=== PATIENT | female | born 1960 | race Caucasian/White ===

== ENCOUNTER → 2017-08-19 | Outpatient (CLI) | payer BC ==
--- NOTE | 2017-08-20 13:25 | MM ---
Reason for exam: screening (asymptomatic). Last mammogram was performed 11 years and 6 months ago. History: Patient is postmenopausal. Physical Findings: A clinical breast exam by your physician is recommended on an annual basis and results should be correlated with mammographic findings. MG Screening Mammo w CAD Bilateral CC and MLO view(s) were taken. Prior study comparison: March 17, 2014, mammogram, performed at [facility]. There are scattered fibroglandular densities. 6mm circumscribed isodense nodule 10 o'clock posterior right breast is now better seen. A benign entity such as a cyst is suspected. A 6 month follow up is recommended. These results were verbally communicated with the patient and result sheet given to the patient on 08/19/17. ASSESSMENT: Probably benign, BI-RAD 3 RECOMMENDATION: Follow-up diagnostic mammogram of the right breast in 6 months.
== END | disposition home or self-care (01) ==
LOC: RADMAMWWP 16:50
PROVIDERS: ATTEND Family Medicine
DX: Z12.31 Encounter for screening mammogram for malignant neoplasm of breast (principal)
CPT/HCPCS: 77067

== ENCOUNTER → 2018-03-05 | Outpatient (CLI) | payer BC ==
[2018-03-05 14:07] VITALS: BP 130/58; PULSE 77; RESP 16; TEMP 97.4; BMI 26.6
--- NOTE | 2018-03-05 14:09 | P.GSHP ---
History of Present Illness H&P Date: 03/05/18 Chief Complaint: abnormal mammogram right breast 08/19/17 The patient is a 57-year-old white female who was seen in the spring and recommended to undergo a repeat right breast mammogram secondary to a mammographic abnormality noted in August 2017. On that film there was a 6 mm circumscribed isodense nodule at the 10:00 posterior right breast. Six-month follow-up was recommended. The patient has not noted any changes in her breasts. She has no nipple discharge or changes. No history of trauma or infection of the breast. Family History: mother: HTN father: esophageal cancer maternal grandmother: breast in hre 80's Hormanal History: menarche: 15 :3, 3 children first at 22 did not breast feed menopause: 54 BCP: 4 years hormones: none Past Surgical History: 1. conization 2. tubaligation 3. hernia as a baby 4. right knee arthroplasty 5. varicose veins 6. tonsils Past Medical History: none Social History: smoke: 1-2/PPD stopped at 41 smoked for 20 years alcohol: occasional drugs: none - Review of Systems Comment: BMI: 26.6 - Constitutional Constitutional: Denies chills, Denies fever - EENT Eyes: denies blurred vision, denies pain Ears: right: decreased hearing Ears, nose, mouth and throat: Denies headache, Denies sore throat - Breasts Breasts: bilateral: as per HPI - Cardiovascular Cardiovascular: Denies chest pain, Denies shortness of breath - Respiratory Respiratory: Denies cough, Denies 7 - Gastrointestinal Gastrointestinal: Denies abdominal pain, Denies diarrhea, Denies nausea, Denies vomiting - Genitourinary (Female) Genitourinary: Denies dysuria, Denies hematuria - Menstruation Menstruation: Reports postmenopausal - Musculoskeletal Comment: right knee arthritis - Integumentary Integumentary: Denies pruritus, Denies rash - Neurological Neurological: Denies numbness, Denies weakness - Psychiatric Psychiatric: Denies anxiety, Denies depression - Endocrine Endocrine: Denies fatigue, Denies weight change - Hematologic/Lymphatic Comment: none - Allergic/Immunologic Allergic/Immunologic: Reports seasonal allergies Surgical - Exam - General well developed, well nourished, no distress - Eyes normal ocular movement, no icteric - ENT no hearing loss, no congestion - Neck no masses, trachea midline - Respiratory normal respiratory effort, clear to auscultation - Cardiovascular Rhythm: regular Heart Sounds: normal: S1, S2 - Abdomen Abdomen: soft, non tender, no guarding, no rigid, no rebound - Integumentary no rash, no abnormal pigmentation - Neurologic no disoriented, no combative - Musculoskeletal normal gait, normal posture - Psychiatric oriented to time, oriented to person, oriented to place, speech is normal, memory intact breast exam: Right breast: Multiple positional exam no dominant masses or nodules of concern Right axilla: No adenopathy of concern left breast: Multi-positional exam no dominant masses or nodules of concern Left axilla: No adenopathy of concern Results Patient is due for a right diagnostic mammogram Assessment and Plan Assessment: Impression: 1. Prior right mammographic abnormality in August 2017 2. History of arthritis Plan: 1. Right breast diagnostic mammogram if OK will see patient again in 6 months with bilateral mamogram CC: Dr. Harshal Post
== END ==
LOC: WWCWWP 13:16
PROVIDERS: ATTEND Surgery
DX: Z53.9 Procedure and treatment not carried out, unspecified reason (principal)

== ENCOUNTER → 2018-03-20 | Outpatient (CLI) | payer BC ==
--- NOTE | 2018-03-20 08:48 | MM ---
Reason for exam: follow-up at short interval from prior study. Last mammogram was performed 7 months ago. History: Patient is postmenopausal. Physical Findings: Nurse did not find any significant physical abnormalities on exam. MG Diagnostic Mammo RT w CAD CC, MLO, and spot compression MLO view(s) were taken of the right breast. Prior study comparison: August 19, 2017, bilateral MG screening mammo w CAD. March 17, 2014, mammogram, performed at [facility]. There are scattered fibroglandular densities. Finding: There is equal architectural distortion in the middle position of the right breast on MLO view. There is no discrete abnormality. Mild asymmetric densities upper outer quadrant right breast. No significant changes in finding since August 19, 2017 and March 17, 2014. These results were verbally communicated with the patient and result sheet given to the patient on 03/20/18. ASSESSMENT: Benign, BI-RAD 2 RECOMMENDATION: Return to routine screening mammogram schedule for both breasts.
== END | disposition home or self-care (01) ==
LOC: RADMAMWWP 07:01
PROVIDERS: ATTEND Surgery
DX: R92.8 Other abnormal and inconclusive findings on diagnostic imaging of breast (principal)
CPT/HCPCS: 77065

== ENCOUNTER → 2018-09-21 | Outpatient (CLI) | payer BC ==
--- NOTE | 2018-09-21 09:51 | MM ---
Reason for exam: screening (asymptomatic). Last mammogram was performed 6 months ago. History: Patient is postmenopausal. Physical Findings: A clinical breast exam by your physician is recommended on an annual basis and results should be correlated with mammographic findings. MG 3D Screening Mammo W/Cad Bilateral CC and MLO view(s) were taken. Prior study comparison: March 20, 2018, right breast MG diagnostic mammo RT w CAD. August 19, 2017, bilateral MG screening mammo w CAD. The breast tissue is heterogeneously dense. This may lower the sensitivity of mammography. There is no discrete abnormality. No significant changes when compared with prior studies. ASSESSMENT: Negative, BI-RAD 1 RECOMMENDATION: Routine screening mammogram of both breasts in 1 year.
== END | disposition home or self-care (01) ==
LOC: RADMAMWWP 07:00
PROVIDERS: ATTEND Surgery
DX: Z12.31 Encounter for screening mammogram for malignant neoplasm of breast (principal)
CPT/HCPCS: 77063; 77067

== ENCOUNTER → 2018-10-09 | Outpatient (CLI) | payer BC ==
[2018-10-09 12:47] VITALS: BP 113/74; PULSE 89; RESP 16; TEMP 98.5; BMI 26.1
--- NOTE | 2018-10-09 13:13 | P.GSHP ---
History of Present Illness H&P Date: 10/09/18 Chief Complaint: fibrocystic breast changes Digna is a 57 year old white female status post a right breast mammogram in August 2017 which showed a lesion which we followed in March of 2018. This was felt to be enign and a repeat bilaterl mammogram was done on 09-21-18. This was a BIRAD 1 no lesions of concern. The patient does not feel any lesions or masses in her her breast. She is not complaining of any pain in her breast. No nipple discharge or skin changes. Family History; 1. father: of esophageal cancer 2. maternal grandmother: breast Hormonal History: menarche: 15 first at22 did not breast feed BCP:4 years hormones: none Past Surgical History: 1. conization 2. tubal 3. hernia 4. right knee 5. varicose veins 6. tonsils Medical history: none Social History: smoke: 1/2 PPD for 30 years, stopped 26 years ago alcohol: occasional drugs: none - Constitutional Constitutional: Denies chills, Denies fever - EENT Eyes: denies blurred vision, denies pain Ears: deny: decreased hearing, tinnitus Ears, nose, mouth and throat: Denies headache, Denies sore throat - Breasts Breasts: bilateral: as per HPI - Cardiovascular Cardiovascular: Denies chest pain, Denies shortness of breath - Respiratory Respiratory: Denies cough, Denies 7 - Gastrointestinal Gastrointestinal: Denies abdominal pain, Denies diarrhea, Denies nausea, Denies vomiting - Genitourinary (Female) Genitourinary: Denies dysuria, Denies hematuria - Menstruation Menstruation: Reports postmenopausal - Musculoskeletal Musculoskeletal: Denies myalgias - Integumentary Integumentary: Denies pruritus, Denies rash - Neurological Neurological: Denies numbness, Denies weakness - Psychiatric Psychiatric: Denies anxiety, Denies depression - Endocrine Endocrine: Denies fatigue, Denies weight change - Hematologic/Lymphatic Comment: none - Allergic/Immunologic Allergic/Immunologic: Reports seasonal allergies Past Medical History Past Medical History: Osteoarthritis (OA) History of Any Multi-Drug Resistant Organisms: None Reported Past Surgical History: Hernia Repair, Tonsillectomy, Tubal Ligation Past Psychological History: No Psychological Hx Reported Smoking Status: Former smoker Past Alcohol Use History: Occasional Past Drug Use History: None Reported - Past Family History Mother Family Medical History: Hypertension Additional Family Medical History / Comment(s): maternal grandmother breast cancer Father Family Medical History: Cancer Additional Family Medical History / Comment(s): esophageal cancer Medications and Allergies Home Medications Medication Instructions Recorded Confirmed Type Multivitamins, Thera [Multivitamin 1 tab PO DAILY 03/05/18 10/09/18 History (formulary)] Cromolyn Sodium [NasalCrom] DAILY 10/09/18 History Montelukast [Singulair] 10 mg PO DAILY 10/09/18 10/09/18 History Allergies Allergy/AdvReac Type Severity Reaction Status Date / Time codeine Allergy Rash/Hives Unverified 10/09/18 12:43 house dust AdvReac Swelling Unverified 10/09/18 12:43 Surgical - Exam Vital Signs Temp Pulse Resp BP Pulse Ox 98.5 F 89 16 113/74 98 10/09/18 12:43 10/09/18 12:43 10/09/18 12:43 10/09/18 12:43 10/09/18 12:43 BMI 26.1 - General well developed, well nourished, no distress - Eyes normal ocular movement - ENT normal pinna, no hearing loss - Neck no masses, trachea midline - Respiratory normal respiratory effort, clear to auscultation - Cardiovascular Rhythm: regular Heart Sounds: normal: S1, S2 - Abdomen Abdomen: soft, non tender, no guarding, no rigid, no rebound - Integumentary normal turgor - Neurologic no disoriented, no combative - Musculoskeletal normal gait, normal posture - Psychiatric oriented to time, oriented to person, oriented to place, speech is normal, memory intact breast exam: right breast: multipositional exam no dominate masses or nodules of concern right axilla: no adenopathy of concern left breast: multipositional exam no dominate masses or nodules of concern left axilla: no adenopathy of concern Results mammogram results reviewed Assessment and Plan Assessment: Impression: 1. fibrocystic bresat changes 2. family history of cancer Plan: 1. repeat bilateral mammogram in 1 year 2. If notes anything to followup sooner 3. follow up in one year CC: Dr. Harshal Post
== END | disposition home or self-care (01) ==
LOC: WWCWWP 12:34
PROVIDERS: ATTEND Surgery
DX: Z53.9 Procedure and treatment not carried out, unspecified reason (principal)

== ENCOUNTER → 2019-02-16 | Outpatient (CLI) | payer BC | END | disposition home or self-care (01) | LOC: RADXRMAIN 17:13 | PROVIDERS: ATTEND Family Medicine | DX: Z53.9 Procedure and treatment not carried out, unspecified reason (principal) ==

== ENCOUNTER → 2019-02-17 | Outpatient (CLI) | payer BC ==
--- NOTE | 2019-02-18 05:53 | XR ---
EXAMINATION TYPE: XR thoracic spine 4 views DATE OF EXAM: 02/17/2019 COMPARISON: NONE HISTORY: 58-year-old female G89.29 TECHNIQUE: 4 views FINDINGS: 12 rib-bearing thoracic vertebral bodies. All pedicles are visualized. Moderate degenerative disc dis ease midthoracic spine. Minimal anterior wedging of a midthoracic vertebral body is unchanged from 20 11. The degenerative disc disease around this level has progressed from 2010. Remaining vertebral bod y heights are preserved and alignment is maintained. IMPRESSION: Moderate degenerative disc disease midthoracic spine, progressed from 2010. No vertebral compression collapse or malalignment.
== END | disposition home or self-care (01) ==
LOC: RADXRMAIN 17:10
PROVIDERS: ATTEND Family Medicine
DX: M51.34 Other intervertebral disc degeneration, thoracic region (principal)
CPT/HCPCS: 72070

== ENCOUNTER → 2019-04-30 | Outpatient (CLI) | payer BC ==
--- NOTE | 2019-05-01 03:01 | MR ---
EXAMINATION TYPE: MR cspine/tspine/lspine wo con DATE OF EXAM: 04/30/2019 COMPARISON: HISTORY: Neck/mid/low back pain, meg hip pain TECHNIQUE: Multiplanar, multisequence imaging of the lumbar and thoracic and cervical spine is perfor med without IV contrast. FINDINGS: Cervical vertebra have normal alignment. There is degenerative disc space narrowing at C5-6 C6-7. The re is small posterior disc herniation at C5-6 and C6-7. There is endplate spur formation. There is de velopmentally adequate spinal canal. The narrowest point is 8.4 mm at the C5-6 level. Cervical spinal cord has normal signal pattern. There is no edema. Brainstem is intact. There is no cervical carol ayaz fracture. There is no cervical paraspinal mass. The thoracic vertebra have normal alignment. Thoracic spinal cord has normal signal pattern. There is no thoracic spinal stenosis. There is no thoracic compression fracture. There is no paraspinal mass. Lumbar vertebra have normal alignment. Disc spaces are fairly normal for age. There is no lumbar comp ression fracture. Lumbar nerve roots appear normal. The neural foramina appear widely patent. There i s no lumbar spinal stenosis. There is no evidence of lumbar disc herniation. The visualized sacroilia c joints appear intact. There is no lumbar paraspinal mass. IMPRESSION: Mild spondylotic changes in the lower cervical spine as above with small posterior disc bulging and s pur formation. No spinal stenosis. Negative MR scan of the thoracic spine. Negative MR scan of the lumbar spine. no fracture. No thorac ic or lumbar spinal stenosis.
== END | disposition home or self-care (01) ==
LOC: RADMRIMAIN 20:31
PROVIDERS: ATTEND Orthopaedic Surgery Orthopaedic Surgery of the Spine
DX: M47.22 Other spondylosis with radiculopathy, cervical region (principal); M50.122 Cervical disc disorder at C5-C6 level with radiculopathy; M54.6 Pain in thoracic spine; M47.814 Spondylosis without myelopathy or radiculopathy, thoracic region; M79.12 Myalgia of auxiliary muscles, head and neck; M54.5 Low back pain; R26.9 Unspecified abnormalities of gait and mobility; M25.521 Pain in right elbow; M77.11 Lateral epicondylitis, right elbow
CPT/HCPCS: 72141; 72146; 72148